=== PATIENT | male | born 1985 | race Two or more races ===

== ENCOUNTER 2021-01-12 17:47 | Emergency (ER) | payer OTHER ==
[~2021-01-12] VITALS: Ht 175.3 cm; Wt 81.6 kg
--- NOTE | 2021-01-12 19:26 | NUR ---
Report received from ARSEN Lacey. Pt has just arrived into the ED for a possible infection of a lipo surgical site x 1month. Pt stated that friend was possibly covid positive, so we held DC so that we can rapid test her. Per MD we will DC and call her with the results.
[2021-01-12] MEDS ORDERED: CEPH500C2 PO (19:34)
[2021-01-12] MEDS ORDERED: MUPI22OI2 TP (19:34)
[2021-01-12] MEDS ORDERED: SULF1TAB48 PO (19:34)
--- NOTE | 2021-01-12 19:36 | NUR ---
Pt just swabbed for rapid covid and sample sent up to lab.
--- NOTE | 2021-01-12 19:41 | NUR ---
Pt given Dc instructions and prescribtion info and pt confirmed understanding of aftercare instructions. VSS, PE WNL, pt denies any pain, nausea, sob, or discomfort of any kind. Pt signed out and ambulated out of the dept without difficulty. Pt has no s/sx of distress present.
[2021-01-12 19:59] VITALS: BP 120/76
== END 2021-01-12 19:39 | disposition home or self-care (01) ==
LOC: ER 17:47
DX: T81.41XA Infection following a procedure, superficial incisional surgical site, initial encounter (principal); Z20.822 Contact with and (suspected) exposure to COVID-19
CPT/HCPCS: A4663

== ENCOUNTER 2022-01-30 00:19 | Emergency (ER) | payer OTHER ==
[~2022-01-30] VITALS: Ht 175.3 cm; Wt 79.4 kg
[~2022-01-30 00:19] MED LIST: CEPH500C2 PO; MUPI22OI2 TP; SULF1TAB48 PO
[2022-01-30 02:23] LABS: *BILIRUBIN,URIN NEGATIVE (NEGATIVE); *CLARITY,URINE CLEAR (CLEAR); *COLOR,URINE YELLOW (YELLOW); *KETONES,URINE NEGATIVE (NEGATIVE); *UROBILINOGEN,URINE 0.2 E.U./dl (NORMAL); LEUKOCYTE ESTERASE ,URINE 1+ (NEGATIVE); NITRITE, URINE NEGATIVE (NEGATIVE); PH,URINE 5.5 (5.0-8.0); UGLUCOSE NEGATIVE (NEGATIVE)
[2022-01-30] MEDS ORDERED: ONDANSETRON 4 MG/2 ML VIAL IV ONE (02:30)
[2022-01-30] MEDS ORDERED: MORPHINE SULFATE 2 MG/1 ML DISP.SYRIN IV ONE (02:30)
[2022-01-30 02:32] LABS: *BLOOD, URINE TRACE (NEGATIVE)
[2022-01-30 02:44] LABS: HEMATOCRIT 40.1 % (36.7-47.1); MEAN CORPUSCULAR HEMOGLOBIN 30.7 uug (23.8-33.4); MEAN CORPUSCULAR VOLUME 88.2 fL (73.0-96.2); PLATELET COUNT (AUTO) 287 K/uL (152-348)
[2022-01-30 03:12] LABS: BACTERIA,URINE NONE SEEN /HPF (NONE SEEN); SQUAMOUS EPITHELIAL CELL,UR MODERATE /HPF (NONE SEEN)
[2022-01-30 03:14] LABS: BILIRUBIN,DIRECT 0.1 mg/dL (0.0-0.2); BILIRUBIN,TOTAL 0.2 mg/dL (0.2-1.0); CREATININE 0.9 mg/dL (0.6-1.3); TOTAL PROTEIN, SERUM 7.6 g/dL (6.4-8.2)
[2022-01-30] MEDS ORDERED: ONDANSETRON 4 MG/2 ML VIAL ONE (03:48)
[2022-01-30] MEDS ORDERED: MORPHINE SULFATE 4 MG/1 ML DISP.SYRIN ONE (03:49)
[2022-01-30] MEDS ORDERED: CEFP200T14 PO (04:44)
[2022-01-30 05:19] VITALS: BP 114/77
== END 2022-01-30 05:20 | disposition home or self-care (01) ==
LOC: ER 00:50
DX: N39.0 Urinary tract infection, site not specified (principal); R10.32 Left lower quadrant pain; N20.0 Calculus of kidney; Z87.442 Personal history of urinary calculi
CPT/HCPCS: 99284; 74176; 96374; 96375; 80076; 80048; 81001; 83690; 85025; 36415; 87040; J2405; J2270; A4663

== ENCOUNTER 2023-01-31 16:37 | Emergency (ER) | payer OTHER ==
[~2023-01-31] VITALS: Ht 175.3 cm; Wt 79.4 kg
[~2023-01-31 16:37] MED LIST changes: +CEFP200T14 PO
[2023-01-31] MEDS ORDERED: IBUP-1955 PO (19:08)
[2023-01-31 19:20] VITALS: BP 135/90; TEMP 98; O2SAT 99
== END 2023-01-31 19:20 | disposition home or self-care (01) ==
LOC: ER 16:41
DX: S93.401A Sprain of unspecified ligament of right ankle, initial encounter (principal); S90.32XA Contusion of left foot, initial encounter; Z79.899 Other long term (current) drug therapy; X50.1XXA Overexertion from prolonged static or awkward postures, initial encounter; Y93.89 Activity, other specified; Y92.89 Other specified places as the place of occurrence of the external cause; Y99.8 Other external cause status
CPT/HCPCS: 73610; 73630; A4606; A4663

== ENCOUNTER 2024-08-21 20:05 | Emergency (ER) | payer OTHER ==
[~2024-08-21] VITALS: Ht 175.3 cm; Wt 90.7 kg
[~2024-08-21 20:05] MED LIST changes: +IBUP-1955 PO
[2024-08-21] MEDS ORDERED: FAMOTIDINE 20 MG TABLET ONE (20:31)
[2024-08-21] MEDS ORDERED: EPINEPHRINE-PF 1:1000 1 MG/ML AMPUL/VIAL ONE (20:31)
[2024-08-21] MEDS ORDERED: diphenhydrAMINE 50 MG/1 ML VIAL ONE (20:31)
[2024-08-21] MEDS ORDERED: predniSONE 20 MG TABLET ONE (20:32)
[2024-08-21] MEDS: diphenhydrAMINE 50 MG/1 ML VIAL IM ONE (20:41)
[2024-08-21] MEDS: FAMOTIDINE 20 MG TABLET PO ONE (20:41)
[2024-08-21] MEDS: EPINEPHRINE-PF 1:1000 1 MG/ML AMPUL/VIAL SQ ONE (20:42)
[2024-08-21] MEDS: predniSONE 10 MG TABLET PO ONE (20:42)
[2024-08-21] MEDS ORDERED: PRED20TA PO (20:54)
[2024-08-21] MEDS ORDERED: DIPH25TA25 PO (20:54)
[2024-08-21 21:27] VITALS: BP 135/77; TEMP 97.8; O2SAT 98
== END 2024-08-21 21:28 | disposition home or self-care (01) ==
LOC: ER 20:05
DX: L50.9 Urticaria, unspecified (principal); Z79.52 Long term (current) use of systemic steroids
CPT/HCPCS: 99284; 96372 ×2; J7512; J1200; J0171; A4606; A4663